=== PATIENT | female | born 1985 | race African-American/Black ===

== ENCOUNTER 2023-05-30 08:49 | Emergency (ER) | payer OTHER ==
[2023-05-30 09:30] VITALS: BP 135/76; PULSE 16; RESP 18; TEMP 98.7; BMI 29.7
[2023-05-30] MEDS ORDERED: IBUPROFEN 600 MG TABLET (FP) PO ONE ×2 (10:27→10:29)
== END 2023-05-30 11:07 | disposition home or self-care (01) ==
LOC: JERFT 08:49
DX: S83.91XA Sprain of unspecified site of right knee, initial encounter (principal); M25.561 Pain in right knee; M25.661 Stiffness of right knee, not elsewhere classified; X50.0XXA Overexertion from strenuous movement or load, initial encounter; Y93.89 Activity, other specified; Y92.89 Other specified places as the place of occurrence of the external cause
CPT/HCPCS: 73562-TC-RT-FY; 99283-25